=== PATIENT | female | born 1965 | race Caucasian/White ===

== ENCOUNTER 2021-05-19 22:09 | Emergency (ER) | payer OTHER, SELFPAY ==
--- NOTE | ~2021-05-19 | CT_ITS ---
EXAMINATION: NONCONTRAST HEAD CT NONCONTRAST MAXILLOFACIAL CT NONCONTRAST CERVICAL SPINE CT INDICATION INFORMATION: Fall. Head injury. Intoxicated. Facial injury. Neck pain. COMPARISON: None TECHNIQUE: Separate noncontrast CT examinations of the head, maxillofacial bones, and cervical spine were performed. Coronal and sagittal images were created for each examination at the technologist workstation. This CT examination was performed using dose optimization techniques as appropriate, variously including the following: *Automated exposure control *Adjustment of mA and/or kV according to patient size (this includes techniques or standardized protocols for targeted exams where dose is matched to indication/reason for exam; i.e. extremities or head) *Use of iterative reconstruction technique DLP: 1092 mGy-cm FINDINGS: Head: There is no evidence of acute intracranial hemorrhage or territorial infarction. No abnormal mass effect or midline shift is seen. Barker to white matter differentiation is well preserved. No extra-axial fluid collections are identified. No hydrocephalus. No significant volume loss. Patchy periventricular and deep white matter hypoattenuation is consistent with mild small vessel ischemic changes. No acute soft tissue abnormality. No calvarial fracture. The mastoid air cells are well aerated. Maxillofacial: No acute maxillofacial fractures are seen. Pterygoid plates are intact. The lamina papyracea are intact. The zygomatic arches are intact. The orbital rims are intact. The nasal bone is intact. There appears to be an absent left mandibular molar with a diminutive carious left mandibular molar noted. . Small mucous retention cyst of the right maxillary sinus. The remaining paranasal sinuses are well aerated. The uncinate process is normal bilaterally. The infundibula and middle meati are patent. The nasal septum is midline. The mandibular heads are well-seated in the condylar fossa. The orbits demonstrate a normal appearance bilaterally. The globes are intact, and there are no suspicious findings to suggest retrobulbar hemorrhage. Cervical spine: There is anatomic alignment of the vertebral bodies and posterior elements. The atlantoaxial and atlantooccipital articulations are intact. Vertebral body heights are maintained. There is multilevel intervertebral disc space narrowing with endplate osteophyte formation and facet arthropathy. No evidence of acute fracture. No prevertebral soft tissue swelling. Mild centrilobular emphysema. The thyroid gland is unremarkable. CT/CT cervical spine wo con IMPRESSION: 1. No acute intracranial finding. 2. No acute maxillofacial fracture. 3. No acute fracture or malalignment of the cervical spine.
[2021-05-19 22:18] VITALS: BP 130/90; PULSE 100; O2SAT 98
[2021-05-19 22:23] VITALS: BP 133/97; PULSE 89; RESP 16; TEMP 37.1; O2SAT 94; BMI 22.2
--- NOTE | 2021-05-19 23:21 | ED.FALL ---
HPI - Fall General Chief Complaint: Fall Stated Complaint: fall/etoh Time Seen by Provider: 05/19/21 23:19 Source: patient and EMS Mode of arrival: EMS Limitations: no limitations History of Present Illness HPI Narrative: 56-year-old female history of alcohol abuse came in by ambulance for evaluation of fall while intoxicated. Patient fell in the street tripped on something on the street, and patient also admitted that she was drinking alcohol than patient fell down hitting her head and face complains of headache facial pain. Patient complained of no other symptoms. Related Data Allergies Allergy/AdvReac Type Severity Reaction Status Date / Time No Known Allergies Allergy Unverified 06/16/20 18:33 [No Known Allergies*] Review of Systems Review of Systems: All other systems are reviewed and are negative Constitutional: Reports as per HPI and Reports no additional constitutional complaints Eyes: Reports as per HPI and Reports no additional eye complaints Reports system reviewed and no additional complaints, except as documented Cardiovascular: Reports as per HPI and Reports no additional cardiovascular complaints Respiratory: Reports as per HPI and Reports no additional respiratory complaints Gastrointestinal: Reports as per HPI and Reports no additional gastrointestinal complaints Genitourinary: Reports no additional female genitourinary complaints Musculoskeletal: Reports no additional musculoskeletal complaints Skin/Breast: Reports system reviewed and no additional complaints, except as docu Psychiatric: Reports no additional psychiatric complaints Endocrine: Reports no additional endocrine complaints Hematologic/Lymphatic: Reports no additional hematologic/lymphatic complaints Allergic/Immunologic: Reports no additional allergic/immunologic complaints Reports system reviewed and no additional complaints, except as documented and Reports Abnormal speech present [facility] Social History Social History Advance Directives: No Advance Directives Information Provided: Yes Physical Exam Vital Signs: Vital Signs: Last Vital Signs Temp 98.7 F 05/19/21 22:23 Pulse 89 05/19/21 22:23 Resp 16 05/19/21 22:23 BP 133/97 H 05/19/21 22:23 Pulse Ox 94 05/19/21 22:23 Oxygen Flow Rate 2 05/19/21 22:23 Body Mass Index 22.2 Vital signs have been reviewed as appeared to be correct. Blood pressure normal. Heart rate normal. Respiration rate normal. Temperature normal. Oxygen saturation normal. Appearance: Alert. Oriented X3. No acute distress. Head: Normal external exam. Normocephalic. No Chapin signs noted. No raccoon eyes noted Eyes: PERRLA. EOMI. Conjunctiva and sclera normal. Mild infraorbital ecchymosis. Lower lip is swollen, no laceration, no dental fracture. ENT: TM's Normal. Pharynx normal. Uvula midline. Moist mucous membranes. No trismus noted. No drooling noted. No muffled voice noted. Neck: Normal inspection. No midline tenderness, no midline step-off. CVS: Normal heart rate and rhythm. Heart sound normal. No murmurs noted. Pulses normal throughout. Respiratory: No respiratory distress. Painless inspiration. Breath sounds normal. No wheezes/rales/rhonchi noted. Chest nontender. No accessory muscle usage noted or decreased air movement noted. Abdomen: Soft and nontender. Bowel sounds normal in all 4 quadrants. No distention noted. No organomegaly noted. No visible injury noted. Back: No CVA tenderness. Full range of motion noted. Skin: Skin warm and dry. Normal skin color. Normal skin turgor. No rashes/lesions/lacerations noted. Extremities: No lower extremity edema. Extremities exhibit normal range of motion. Extremities nontender. Neuro: Oriented X 3. Cranial nerve exam: II-XII are grossly intact No motor deficit. No sensory deficit. Reflexes normal. Course Course Course Narrative: Assessment and plan. 56-year-old female who presented for evaluation of fall while she was intoxicated causing facial/head injury. Patient was GCS of 15, patient is sober able to ambulate in the emergency department with steady gait will discharge the patient to follow-up with PCP. MDM - Fall Imaging Data CT head is/facial/C-spine.: Radiologist's impression: 1. No acute intracranial finding. 2. No acute maxillofacial fracture. 3. No acute fracture or malalignment of the cervical spine. Discharge Plan Discharge Clinical Impression: Facial injury, Closed head injury Alcohol intoxication Qualifiers: Complication of substance-induced condition: uncomplicated Qualified Code(s): F10.920 - Alcohol use, unspecified with intoxication, uncomplicated Patient Disposition: Home, Self-Care Instructions: Head Injury (ED), Alcohol Intoxication (ED) Referrals: Physician,Nonstaff [Primary Care Provider] - 2 days
== END 2021-05-20 01:32 | disposition home or self-care (01) ==
PROVIDERS: Emergency Provider Emergency Medicine
DX: F10.120 Alcohol abuse with intoxication, uncomplicated (principal); Y90.9 Presence of alcohol in blood, level not specified; S09.90XA Unspecified injury of head, initial encounter; S00.10XA Contusion of unspecified eyelid and periocular area, initial encounter; W17.89XA Other fall from one level to another, initial encounter; Y93.01 Activity, walking, marching and hiking; Y92.414 Local residential or business street as the place of occurrence of the external cause; Y99.9 Unspecified external cause status
CPT/HCPCS: 70450; 70486; 72125; 99284

== ENCOUNTER 2021-12-02 15:55 | Emergency (ER) | payer OTHER, SELFPAY ==
--- NOTE | ~2021-12-02 | CT_ITS ---
EXAMINATION: CT HEAD WITHOUT CONTRAST CLINICAL INFORMATION: Fall. EtOH. COMPARISON: CT head 05/19/2021 TECHNIQUE: Contiguous axial imaging was performed from the skull base to vertex without intravenous administration of contrast. This CT examination was performed using dose optimization techniques as appropriate, variously including the following: *Automated exposure control *Adjustment of mA and/or kV according to patient size (this includes techniques or standardized protocols for targeted exams where dose is matched to indication/reason for exam; i.e. extremities or head) *Use of iterative reconstruction technique DLP: 653 mGy-cm FINDINGS: Mild diffuse commensurate prominence of ventricles and sulci is noted. No intrarenal hemorrhage, tumors or acute infarcts are visualized. No focal parenchymal lesions the brain are identified. Gas which likely is iatrogenic related to peripheral venous access is noted within the cavernous sinus and is of uncertain clinical significance. Gas is noted within the facial veins bilaterally. In scattered additional extracranial veins again likely related to peripheral venous access. No significant opacification of the visualized paranasal sinuses, mastoid air cells and middle ear cavities. CT/CT head/brain wo con IMPRESSION: *No acute intrarenal abnormalities.
[2021-12-02 16:07] VITALS: BP 81/55; BP 92/60; PULSE 65; PULSE 68; RESP 15; TEMP 36.9; O2SAT 92; O2SAT 93; BMI 20.5
--- NOTE | 2021-12-02 16:07 | ECG_ITS ---
Test Reason : ALTERED MENTAL STATUS Blood Pressure : / mmHG Vent. Rate : 066 BPM Atrial Rate : 066 BPM P-R Int : 146 ms QRS Dur : 076 ms QT Int : 426 ms P-R-T Axes : 067 071 059 degrees QTc Int : 446 ms Normal sinus rhythm Normal ECG No previous ECGs available Referred By: Xenia Johnson Electronically Signed By:Mike Perales
--- NOTE | 2021-12-02 16:13 | ED_ITS ---
HPI - General Adult General Chief complaint: Altered Mental Status <POLA Durand - Last Filed: 12/02/21 17:36> Stated complaint: ams/hypotension <POLA Durand - Last Filed: 12/02/21 17:36> Time Seen by Provider: 12/02/21 16:07 <POLA Durand - Last Filed: 12/02/21 17:36> Source: patient and EMS <POLA Durand - Last Filed: 12/02/21 17:36> Mode of arrival: EMS <POLA Durand - Last Filed: 12/02/21 17:36> History of Present Illness HPI narrative: 56-year-old female with past medical history of ETOH abuse [place] becoming unresponsive and whoever she was with dropped her off at security and immediately left. History limited. Per EMS patient responsive to painful stimuli/sternal rub and hypotensive in the 80's. Patient admits to drinking EtOH, will not specify quantity Denies other illicit drugs. Denies injury but unknown head trauma. <POLA Durand - Last Filed: 12/02/21 17:36> Onset (ago): minute(s) <POLA Durand - Last Filed: 12/02/21 17:36> Related Data Allergies/adverse reactions: Allergies Allergy/AdvReac Type Severity Reaction Status Date / Time No Known Allergies Allergy Verified 12/02/21 16:07 [No Known Allergies*] <POLA Durand - Last Filed: 12/02/21 17:36> Review of Systems Review of Systems: ROS limited secondary to patient's acute mental status <POLA Durand - Last Filed: 12/02/21 17:36> Yes all other systems are reviewed and are negative <POLA Durand - Last Filed: 12/02/21 17:36> [facility] Past Medical History Attestation statement: The following information was validated with the patient. <POLA Durand - Last Filed: 12/02/21 17:36> Social History Social History: Social History Alcohol intake: current Alcohol intake frequency: 3 or more drinks per day Alcohol type: hard liquor Use of substances other than those prescribed or required for medical reasons: Unknown Advance Directives: No Advance Directives Information Provided: No <POLA Durand Last Filed: 12/02/21 17:36> Physical Exam ED Vital Signs: Vital Signs - 24 hr 12/02/21 16:07 12/02/21 16:18 12/02/21 16:33 Temperature 98.4 F 97.7 F Pulse Rate 65 70 67 Respiratory Rate 15 12 11 L Blood Pressure 81/55 L 104/75 108/78 Pulse Oximetry 92 98 100 12/02/21 19:04 12/02/21 20:48 Temperature Pulse Rate 61 68 Respiratory Rate 12 14 Blood Pressure 87/63 L 99/75 Pulse Oximetry 97 95 BMI result Body Mass Index 20.5 <POLA Durand Last Filed: 12/02/21 17:36> Vital Signs - 24 hr 12/02/21 16:07 12/02/21 16:18 12/02/21 16:33 Temperature 98.4 F 97.7 F Pulse Rate 65 70 67 Respiratory Rate 15 12 11 L Blood Pressure 81/55 L 104/75 108/78 Pulse Oximetry 92 98 100 12/02/21 19:04 12/02/21 20:48 Temperature Pulse Rate 61 68 Respiratory Rate 12 14 Blood Pressure 87/63 L 99/75 Pulse Oximetry 97 95 BMI result Body Mass Index 20.5 <POLA Zhou Last Filed: 12/02/21 21:08> Const Other: Arousable to voice, ETOH odor on breath, no evidence of trauma <POLA Durand Last Filed: 12/02/21 17:36> General: lethargic <POLA Durand Last Filed: 12/02/21 17:36> Orientation/consciousness: oriented to person, oriented to time and lethargic <POLA Durand Last Filed: 12/02/21 17:36> Limitations: no limitations <POLA Durand Last Filed: 12/02/21 17:36> HENMT Head: Yes normal to inspection, Yes atraumatic, No Chapin's sign and No raccoon eyes <POLA Durand - Last Filed: 12/02/21 17:36> Ears: hearing grossly normal bilaterally <Xenia Johnson PA - Last Filed: 12/02/21 17:36> General nose exam: Normal external nose present <Xenia Janaenew PA - Last Filed: 12/02/21 17:36> Face and sinus: Yes normal facial exam <Xenia Johnson PA - Last Filed: 12/02/21 17:36> Eyes General: appearance normal, both eyes and all related structures <Xenia Janaenew PA - Last Filed: 12/02/21 17:36> Pupils: Equal, round and reactive pupils present and Dilated pupils bilaterally <Xenia Johnson PA - Last Filed: 12/02/21 17:36> Neck Neck: Yes normal visual inspection <Xenia Johnson PA - Last Filed: 12/02/21 17:36> Resp Effort & Inspection: normal respiratory effort and no respiratory distress <Xenia Johnson PA - Last Filed: 12/02/21 17:36> Auscultation: clear to auscultation bilaterally <Xenia Johnson PA - Last Filed: 12/02/21 17:36> Cardio Rate: regular rate <Xenia Johnson PA - Last Filed: 12/02/21 17:36> Heart sounds: S1 normal heart sound present and S2 normal heart sound present <Xenia Johnson PA - Last Filed: 12/02/21 17:36> GI Inspection: Yes normal to inspection <Xenia Johnson PA - Last Filed: 12/02/21 17:36> Palpation (GI): Soft to palpation, nontender, no guarding and not rigid <Xenia Johnson PA - Last Filed: 12/02/21 17:36> Back/Spine/Pelvis Other: No midline thoracic/lumbar spinous tenderness <Xenia Johnson PA - Last Filed: 12/02/21 17:36> Skin Rashes: no rashes <Xenia Johnson PA - Last Filed: 12/02/21 17:36> Wounds: no wounds <Xenia Johnson PA - Last Filed: 12/02/21 17:36> Neuro General: oriented to person, oriented to time, moves all extremities and CN's II-XI intact bilaterally <POLA Durand - Last Filed: 12/02/21 17:36> Cranial nerves: Yes Equal, round and reactive pupils present <POLA Durand - Last Filed: 12/02/21 17:36> Extrem General: Yes normal to inspection <POLA Durand - Last Filed: 12/02/21 17:36> Course Course Course Narrative: -labs unremarkable. Tox screen positive for THC. Ethanol 210 -COVID negative. -patient comfortably sleeping, in no apparent distress, respirations nonlabored. CT head/brain wo con IMPRESSION: *No acute intrarenal abnormalities. -1800--ED care transferred to POAL Lozano pending clinical sobriety and discharge home <POLA Durand - Last Filed: 12/02/21 17:36> Reevaluation(s) Reevaluation #1: Patient's blood pressure improved after 3 L of fluids 106/79. Saturating well on room air. Patient ambulating with a steady gait. Patient's friend Vale will, get her, this is her sober ride. Advised her to return with new or worsening symptoms. Comfortable with discharge home <POLA Zhou - Last Filed: 12/02/21 21:08> Time: 21:07 <POLA Zhou - Last Filed: 12/02/21 21:08> Medical Decision Making [facility] Narrative Medical decision making narrative: 56-year-old female with past medical history of ETOH abuse [place] becoming unresponsive and whoever she was with dropped her off at security and immediately left. Admits to drinking EtOH. On exam hypotensive, and desatting into the low 90s, lethargic, arousable to voice, no evidence of trauma, ETOH odor on breath. Concern for ETOH intoxication/substance abuse. Rule out ICH. Low concern for CVA/infection. Rule out metabolic abnormalities Low concern for severe sepsis. Low BP likely from on board substances Plan: EKG, labs, UA, drug screen, ethanol, head CT, IVF <POLA Durand Last Filed: 12/02/21 17:36> Medical Records Medical records reviewed: Yes I reviewed the patient's medical records. <POLA Durand - Last Filed: 12/02/21 17:36> Lab Data Lab results reviewed: Yes I reviewed the patient's lab results. <POLA Durand - Last Filed: 12/02/21 17:36> Result diagrams: : 12/02/21 16:18 12/02/21 16:18 <POLA Durand - Last Filed: 12/02/21 17:36> Labs: Lab Results 12/02/21 12/02/21 12/02/21 Range/Units 16:18 16:18 16:18 WBC 7.8 (4.8-10.8) X10*3/uL RBC 4.65 (4.20-5.50) X10*6/uL Hgb 13.8 (12.0-16.0) g/dl Hct 43.5 (37.0-47.0) % MCV 93.5 (80.0-98.0) fL MCH 29.7 (27.0-33.0) pg MCHC 31.7 (31.0-35.0) g/dl RDW 13.2 (11.0-16.0) % Plt Count 246 (160-400) X10*3/uL MPV 9.6 (9.4-12.3) fL Immature Gran % (Auto) 0.5 H (0.0-0.4) % Neut % (Auto) 60.5 (45-73) % Lymph % (Auto) 33.4 (20-40) % [place] % (Auto) 4.7 (2-11) % Eos % (Auto) 0.4 (0-4) % Baso % (Auto) 0.5 (0-2) % Lymph # (Auto) 2.6 (1.2-4.9) X10*3/uL [place] # (Auto) 0.4 (0.1-1.2) X10*3/uL Eos # (Auto) 0.0 (0.0-0.4) X10*3/uL Baso # (Auto) 0.0 (0.0-0.2) X10*3/uL Abs Immat Gran (auto) 0.04 H (0.00-0.03) X10*3/uL Absolute Neuts (auto) 4.7 (2.0-8.3) x10*3/uL Absolute Nucleated RBC 0.000 (0.0-0.012) X10*3/uL Nucleated RBC % (auto) 0.0 (0.0-0.2) /100WBC Sodium 141 (135-145) mmol/L Potassium 4.2 (3.3-5.1) mmol/L Chloride 105 (96-108) mmol/L Carbon Dioxide 28 (22-29) mmol/L Anion Gap 12 (12-20) BUN 13 (9-16) mg/dL Creatinine 0.80 (0.5-1.4) mg/dL Estim Creat Clear Calc 71.1 Estimated GFR > 60 Random Glucose 97 (60-115) mg/dL Calcium 9.2 (8.4-10.2) mg/dL Magnesium 1.9 (1.6-2.6) mg/dL Total Bilirubin 0.2 (0.0-1.0) mg/dL Direct Bilirubin < 0.2 (0.0-0.5) mg/dL AST 16 (5-31) U/L ALT 14 (0-31) U/L Alkaline Phosphatase 110 (39-117) U/L Total Protein 6.6 (6.5-8.0) g/dL Albumin 4.1 (3.5-5.0) g/dL Urine Color Urine Appearance Urine pH (5.0-8.0) Ur Specific [place] (1.005-1.025) Urine Protein (NEG-TRACE) MG/DL Urine Glucose (UA) (NEG) MG/DL Urine Ketones (NEG) MG/DL Urine Blood (NEG) Urine Nitrite (NEG) Ur Leukocyte Esterase (NEG) Urine Opiates Screen (Not Detect) Urine Fentanyl Screen (Not Detect) Ur Barbiturates Screen (Not Detect) Ur Phencyclidine Scrn (Not Detect) Ur Amphetamines Screen (Not Detect) U Benzodiazepines Scrn (Not Detect) Urine Cocaine Screen (Not Detect) U Marijuana (THC) Screen (Not Detect) Ethyl Alcohol 210 mg/dL COVID-19 (JEANNA) (Negative) COVID-19 Clin Com 12/02/21 12/02/21 12/02/21 Range/Units 16:39 16:39 16:39 WBC (4.8-10.8) X10*3/uL RBC (4.20-5.50) X10*6/uL Hgb (12.0-16.0) g/dl Hct (37.0-47.0) % MCV (80.0-98.0) fL MCH (27.0-33.0) pg MCHC (31.0-35.0) g/dl RDW (11.0-16.0) % Plt Count (160-400) X10*3/uL MPV (9.4-12.3) fL Immature Gran % (Auto) (0.0-0.4) % Neut % (Auto) (45-73) % Lymph % (Auto) (20-40) % [place] % (Auto) (2-11) % Eos % (Auto) (0-4) % Baso % (Auto) (0-2) % Lymph # (Auto) (1.2-4.9) X10*3/uL [place] # (Auto) (0.1-1.2) X10*3/uL Eos # (Auto) (0.0-0.4) X10*3/uL Baso # (Auto) (0.0-0.2) X10*3/uL Abs Immat Gran (auto) (0.00-0.03) X10*3/uL Absolute Neuts (auto) (2.0-8.3) x10*3/uL Absolute Nucleated RBC (0.0-0.012) X10*3/uL Nucleated RBC % (auto) (0.0-0.2) /100WBC Sodium (135-145) mmol/L Potassium (3.3-5.1) mmol/L Chloride (96-108) mmol/L Carbon Dioxide (22-29) mmol/L Anion Gap (12-20) BUN (9-16) mg/dL Creatinine (0.5-1.4) mg/dL Estim Creat Clear Calc Estimated GFR Random Glucose (60-115) mg/dL Calcium (8.4-10.2) mg/dL Magnesium (1.6-2.6) mg/dL Total Bilirubin (0.0-1.0) mg/dL Direct Bilirubin (0.0-0.5) mg/dL AST (5-31) U/L ALT (0-31) U/L Alkaline Phosphatase (39-117) U/L Total Protein (6.5-8.0) g/dL Albumin (3.5-5.0) g/dL Urine Color STRAW Urine Appearance CLEAR Urine pH 6.5 (5.0-8.0) Ur Specific [place] <= 1.005 (1.005-1.025) Urine Protein NEG (NEG-TRACE) MG/DL Urine Glucose (UA) NEG (NEG) MG/DL Urine Ketones NEG (NEG) MG/DL Urine Blood NEG (NEG) Urine Nitrite NEG (NEG) Ur Leukocyte Esterase NEG (NEG) Urine Opiates Screen Not Detected (Not Detect) Urine Fentanyl Screen Not Detected (Not Detect) Ur Barbiturates Screen Not Detected (Not Detect) Ur Phencyclidine Scrn Not Detected (Not Detect) Ur Amphetamines Screen Not Detected (Not Detect) U Benzodiazepines Scrn Not Detected (Not Detect) Urine Cocaine Screen Not Detected (Not Detect) U Marijuana (THC) Screen POSITIVE H (Not Detect) Ethyl Alcohol mg/dL COVID-19 (JEANNA) Negative (Negative) COVID-19 Clin Com See Note <POLA Durand - Last Filed: 12/02/21 17:36> Lab Results 12/02/21 12/02/21 12/02/21 Range/Units 16:18 16:18 16:18 WBC 7.8 (4.8-10.8) X10*3/uL RBC 4.65 (4.20-5.50) X10*6/uL Hgb 13.8 (12.0-16.0) g/dl Hct 43.5 (37.0-47.0) % MCV 93.5 (80.0-98.0) fL MCH 29.7 (27.0-33.0) pg MCHC 31.7 (31.0-35.0) g/dl RDW 13.2 (11.0-16.0) % Plt Count 246 (160-400) X10*3/uL MPV 9.6 (9.4-12.3) fL Immature Gran % (Auto) 0.5 H (0.0-0.4) % Neut % (Auto) 60.5 (45-73) % Lymph % (Auto) 33.4 (20-40) % [place] % (Auto) 4.7 (2-11) % Eos % (Auto) 0.4 (0-4) % Baso % (Auto) 0.5 (0-2) % Lymph # (Auto) 2.6 (1.2-4.9) X10*3/uL [place] # (Auto) 0.4 (0.1-1.2) X10*3/uL Eos # (Auto) 0.0 (0.0-0.4) X10*3/uL Baso # (Auto) 0.0 (0.0-0.2) X10*3/uL Abs Immat Gran (auto) 0.04 H (0.00-0.03) X10*3/uL Absolute Neuts (auto) 4.7 (2.0-8.3) x10*3/uL Absolute Nucleated RBC 0.000 (0.0-0.012) X10*3/uL Nucleated RBC % (auto) 0.0 (0.0-0.2) /100WBC Sodium 141 (135-145) mmol/L Potassium 4.2 (3.3-5.1) mmol/L Chloride 105 (96-108) mmol/L Carbon Dioxide 28 (22-29) mmol/L Anion Gap 12 (12-20) BUN 13 (9-16) mg/dL Creatinine 0.80 (0.5-1.4) mg/dL Estim Creat Clear Calc 71.1 Estimated GFR > 60 Random Glucose 97 (60-115) mg/dL Calcium 9.2 (8.4-10.2) mg/dL Magnesium 1.9 (1.6-2.6) mg/dL Total Bilirubin 0.2 (0.0-1.0) mg/dL Direct Bilirubin < 0.2 (0.0-0.5) mg/dL AST 16 (5-31) U/L ALT 14 (0-31) U/L Alkaline Phosphatase 110 (39-117) U/L Total Protein 6.6 (6.5-8.0) g/dL Albumin 4.1 (3.5-5.0) g/dL Urine Color Urine Appearance Urine pH (5.0-8.0) Ur Specific [place] (1.005-1.025) Urine Protein (NEG-TRACE) MG/DL Urine Glucose (UA) (NEG) MG/DL Urine Ketones (NEG) MG/DL Urine Blood (NEG) Urine Nitrite (NEG) Ur Leukocyte Esterase (NEG) Urine Opiates Screen (Not Detect) Urine Fentanyl Screen (Not Detect) Ur Barbiturates Screen (Not Detect) Ur Phencyclidine Scrn (Not Detect) Ur Amphetamines Screen (Not Detect) U Benzodiazepines Scrn (Not Detect) Urine Cocaine Screen (Not Detect) U Marijuana (THC) Screen (Not Detect) Ethyl Alcohol 210 mg/dL COVID-19 (JEANNA) (Negative) COVID-19 Clin Com 12/02/21 12/02/21 12/02/21 Range/Units 16:39 16:39 16:39 WBC (4.8-10.8) X10*3/uL RBC (4.20-5.50) X10*6/uL Hgb (12.0-16.0) g/dl Hct (37.0-47.0) % MCV (80.0-98.0) fL MCH (27.0-33.0) pg MCHC (31.0-35.0) g/dl RDW (11.0-16.0) % Plt Count (160-400) X10*3/uL MPV (9.4-12.3) fL Immature Gran % (Auto) (0.0-0.4) % Neut % (Auto) (45-73) % Lymph % (Auto) (20-40) % [place] % (Auto) (2-11) % Eos % (Auto) (0-4) % Baso % (Auto) (0-2) % Lymph # (Auto) (1.2-4.9) X10*3/uL [place] # (Auto) (0.1-1.2) X10*3/uL Eos # (Auto) (0.0-0.4) X10*3/uL Baso # (Auto) (0.0-0.2) X10*3/uL Abs Immat Gran (auto) (0.00-0.03) X10*3/uL Absolute Neuts (auto) (2.0-8.3) x10*3/uL Absolute Nucleated RBC (0.0-0.012) X10*3/uL Nucleated RBC % (auto) (0.0-0.2) /100WBC Sodium (135-145) mmol/L Potassium (3.3-5.1) mmol/L Chloride (96-108) mmol/L Carbon Dioxide (22-29) mmol/L Anion Gap (12-20) BUN (9-16) mg/dL Creatinine (0.5-1.4) mg/dL Estim Creat Clear Calc Estimated GFR Random Glucose (60-115) mg/dL Calcium (8.4-10.2) mg/dL Magnesium (1.6-2.6) mg/dL Total Bilirubin (0.0-1.0) mg/dL Direct Bilirubin (0.0-0.5) mg/dL AST (5-31) U/L ALT (0-31) U/L Alkaline Phosphatase (39-117) U/L Total Protein (6.5-8.0) g/dL Albumin (3.5-5.0) g/dL Urine Color STRAW Urine Appearance CLEAR Urine pH 6.5 (5.0-8.0) Ur Specific [place] <= 1.005 (1.005-1.025) Urine Protein NEG (NEG-TRACE) MG/DL Urine Glucose (UA) NEG (NEG) MG/DL Urine Ketones NEG (NEG) MG/DL Urine Blood NEG (NEG) Urine Nitrite NEG (NEG) Ur Leukocyte Esterase NEG (NEG) Urine Opiates Screen Not Detected (Not Detect) Urine Fentanyl Screen Not Detected (Not Detect) Ur Barbiturates Screen Not Detected (Not Detect) Ur Phencyclidine Scrn Not Detected (Not Detect) Ur Amphetamines Screen Not Detected (Not Detect) U Benzodiazepines Scrn Not Detected (Not Detect) Urine Cocaine Screen Not Detected (Not Detect) U Marijuana (THC) Screen POSITIVE H (Not Detect) Ethyl Alcohol mg/dL COVID-19 (JEANNA) Negative (Negative) COVID-19 Clin Com See Note <POLA Zhou - Last Filed: 12/02/21 21:08> Discharge Plan Discharge Clinical Impression: Alcohol abuse <POLA Durand - Last Filed: 12/02/21 17:36> Patient Disposition: Home, Self-Care <POLA Durand - Last Filed: 12/02/21 17:36> Instructions: Abuse of Alcohol (DC) <POLA Durand - Last Filed: 12/02/21 17:36> Additional Instructions: Your blood work and head CT were reassuring today. Avoid alcohol use. Drinking and drug use can kill you. Please follow-up with her doctor Return new or worsening symptoms. <POLA Durand - Last Filed: 12/02/21 17:36> Referrals: Physician,Unknown J [Primary Care Provider] - 2 days <POLA Durand - Last Filed: 12/02/21 17:36>
[2021-12-02 16:18] VITALS: BP 104/75; PULSE 70; RESP 12; O2SAT 98
[2021-12-02] MEDS: 0.9 % Sodium Chloride 1,000 ML 999 ML IV ×3 (16:22→17:43)
[2021-12-02 16:24] LABS: MANUAL DIFF FLAG NO
[2021-12-02 16:25] LABS: Basophils Percent Auto 0.5 % (0-2); Eosinophils Percent Auto 0.4 % (0-4); Hematocrit 43.5 % (37.0-47.0); Hemoglobin 13.8 g/dl (12.0-16.0); Imm Gran Abs Auto 0.04 X10*3/uL (0.00-0.03); Imm Gran Pct Auto 0.5 % (0.0-0.4); Lymphocytes Absolute Auto 2.6 X10*3/uL (1.2-4.9); Lymphocytes Percent Auto 33.4 % (20-40); Mean Corpuscular HGB Conc 31.7 g/dl (31.0-35.0); Mean Corpuscular Hemoglobin 29.7 pg (27.0-33.0); Mean Corpuscular Volume 93.5 fL (80.0-98.0); Mean Platelet Volume 9.6 fL (9.4-12.3); Monocytes Absolute Auto 0.4 X10*3/uL (0.1-1.2); Monocytes Percent Auto 4.7 % (2-11); Neutrophils Absolute Auto 4.7 x10*3/uL (2.0-8.3); Neutrophils Percent Auto 60.5 % (45-73); Platelet Count 246 X10*3/uL (160-400); Red Blood Count 4.65 X10*6/uL (4.20-5.50); Red Cell Distribution Width 13.2 % (11.0-16.0); White Blood Count 7.8 X10*3/uL (4.8-10.8)
[2021-12-02 16:33] VITALS: BP 108/78; PULSE 67; RESP 11; TEMP 36.5; O2SAT 100
[2021-12-02 16:49] LABS: Ethanol 210 mg/dL
[2021-12-02 16:51] LABS: Appearance Urine CLEAR; Color Urine STRAW; Glucose Urine UA NEG (NEG); Leukocyte Esterase Urine NEG (NEG); Nitrite Urine NEG (NEG); PH 6.5 (5.0-8.0); Specific Gravity - Urine <= 1.005 (1.005-1.025); Urine Blood NEG (NEG); Urine Ketones NEG (NEG); Urine Protein NEG (NEG-TRACE)
[2021-12-02 16:53] LABS: Alanine Aminotransferase 14 U/L (0-31); Albumin Level 4.1 g/dL (3.5-5.0); Alkaline Phosphatase 110 U/L (39-117); Anion Gap 12 (12-20); Aspartate Amino Transferase 16 U/L (5-31); Bilirubin Direct < 0.2 mg/dL (0.0-0.5); Bilirubin Total 0.2 mg/dL (0.0-1.0); Blood Urea Nitrogen 13 mg/dL (9-16); Calcium 9.2 mg/dL (8.4-10.2); Carbon Dioxide 28 mmol/L (22-29); Chloride 105 mmol/L (96-108); Creatinine Clr Calc Pharmacy 71.1; Estimated Glomerular Filt Rate > 60; Glucose Random 97 mg/dL (60-115); Magnesium 1.9 mg/dL (1.6-2.6); Potassium 4.2 mmol/L (3.3-5.1); Sodium 141 mmol/L (135-145); Total Protein 6.6 g/dL (6.5-8.0)
[2021-12-02 17:02] LABS: Amphetamine Screen Urine Not Detected (Not Detect); Barbiturates, Urine Not Detected (Not Detect); Benzodiazepines Screen Urine Not Detected (Not Detect); COVID-19 Test Negative (Negative); Cannabinoid Screen Urine POSITIVE (Not Detect); Cocaine Screen Urine Not Detected (Not Detect); Fentanyl, urine Not Detected (Not Detect); IDNOW Serial# 16C4AD1C; Opiate Screen Urine Not Detected (Not Detect); Phencyclidine Screen Urine Not Detected (Not Detect)
[2021-12-02 19:04] VITALS: BP 87/63; PULSE 61; RESP 12; O2SAT 97
--- NOTE | 2021-12-02 19:06 | PC.NURSE ---
This RN received report on this PT. PT sleeping in bed at this time. Respirations even and unlabored, PT in no apparent distress.
--- NOTE | 2021-12-02 19:56 | PC.NURSE ---
PT woke up and stated that she needed to use the bathroom. This RN assisted the PT out of bed and walked next to her to the bathroom. PT able to ambulate with steady gait. PT is CAOx3 at this time; unsure of how she arrived at our facility.
[2021-12-02 20:48] VITALS: BP 99/75; PULSE 68; RESP 14; O2SAT 95
== END 2021-12-02 21:16 | disposition home or self-care (01) ==
PROVIDERS: Physician Assistant; Emergency Provider Emergency Medicine Emergency Medical Services
DX: F10.10 Alcohol abuse, uncomplicated (principal); Y90.7 Blood alcohol level of 200-239 mg/100 ml; R53.83 Other fatigue; I95.9 Hypotension, unspecified; Z20.822 Contact with and (suspected) exposure to COVID-19; F12.90 Cannabis use, unspecified, uncomplicated
CPT/HCPCS: 70450; 80048; 80076; 80307; 81003; 82077; 83735; 85025; 87635; 93005; 96360; 96361; 99284; 99285